=== PATIENT | male | born 1960 | race African-American/Black ===

== ENCOUNTER 2017-12-20 16:24 | Emergency (ER) | payer OTHER, SELFPAY ==
[2017-12-20 16:58] LABS: AMPHETAMINE/METHAMPHETAMINE NEG (NEG); BARBITURATES NEG (NEG); BENZODIAZEPINES NEG (NEG); CANNABINOIDS NEG (NEG); COCAINE POS (NEG); ETHANOL, URINE NEG (NEG); METHADONE NEG (NEG); OPIATES NEG (NEG); PHENCYCLIDINE NEG (NEG)
[2017-12-20 17:02] LABS: ADD MAN DIFF? NO
[2017-12-20 17:07] LABS: BASO % 1 % (0-3); EOS % 0 % (0-3); HEMATOCRIT 36.1 % (39.0-53.0); HEMOGLOBIN 11.9 g/dL (13.0-17.5); LYMPH # 1.2 x10^3/uL (1.0-4.8); LYMPH % 19 % (24-48); MEAN CORPUSCULAR HEMOGLOBIN 28 pg (25-35); MEAN CORPUSCULAR HGB CONC 33 g/dL (31-37); MEAN CORPUSCULAR VOLUME 85 fL (79-100); MONO # 0.6 x10^3/uL (0.0-1.1); MONO % 9 % (0-9); NEUT # 4.6 x10^3uL (1.8-7.7); NEUT % 71 % (31-73); PLATELET COUNT 226 x10^3/uL (140-400); RED BLOOD COUNT 4.26 x10^6/uL (4.30-5.70); WHITE BLOOD COUNT 6.5 x10^3/uL (4.0-11.0)
[2017-12-20] MEDS: IV NORMAL SALINE 1000ML BAG 1,000 ML IV ×2 (17:10)
[2017-12-20 17:36] LABS: ANION GAP 7 (6-14); BLOOD UREA NITROGEN 23 mg/dL (8-26); BUN/CREATININE RATIO 16 (6-20); CALCIUM 9.7 mg/dL (8.5-10.1); CARBON DIOXIDE 30 mmol/L (21-32); CHLORIDE 101 mmol/L (98-107); CREATININE 1.4 mg/dL (0.7-1.3); GFR 52.4; GLUCOSE 448 mg/dL (70-99); POTASSIUM 4.2 mmol/L (3.5-5.1); SODIUM 138 mmol/L (136-145)
[2017-12-20 17:42] LABS: ALBUMIN 3.8 g/dL (3.4-5.0); ALBUMIN/GLOBULIN RATIO 0.9 (1.0-1.7); ALK PHOS 77 U/L (46-116); ALT (SGPT) 23 U/L (16-63); AST (SGOT) 27 U/L (15-37); TOTAL BILIRUBIN 0.5 mg/dL (0.2-1.0)
[2017-12-20 17:50] LABS: ETHANOL < 10 mg/dL (0-10)
[2017-12-20] MEDS: INSULIN REGULAR 100 UNIT/ML 10ML VIAL. IV ×2 (18:45)
== END 2017-12-20 19:49 | disposition home or self-care (01) ==
LOC: ER 16:24
DX: F32.9 Major depressive disorder, single episode, unspecified (principal); F14.90 Cocaine use, unspecified, uncomplicated; R45.851 Suicidal ideations; I48.91 Unspecified atrial fibrillation; J45.909 Unspecified asthma, uncomplicated; E11.9 Type 2 diabetes mellitus without complications; E78.00 Pure hypercholesterolemia, unspecified; I10 Essential (primary) hypertension; Z79.84 Long term (current) use of oral hypoglycemic drugs; Z59.0 Homelessness; Z79.899 Other long term (current) drug therapy
CPT/HCPCS: 36415; 80053; 80307; 85025; 96361; 96374; 99284-25; G0480; J1815; J7030

== ENCOUNTER 2018-01-31 02:13 | Emergency (ER) | payer OTHER | END 2018-01-31 05:37 | disposition home or self-care (01) | LOC: ER 02:13 | DX: M25.562 Pain in left knee (principal); E11.9 Type 2 diabetes mellitus without complications; E78.00 Pure hypercholesterolemia, unspecified; I48.91 Unspecified atrial fibrillation; J45.909 Unspecified asthma, uncomplicated; F14.10 Cocaine abuse, uncomplicated; W18.39XA Other fall on same level, initial encounter; Y93.89 Activity, other specified; Y99.8 Other external cause status; Y92.89 Other specified places as the place of occurrence of the external cause | CPT/HCPCS: 72170; 73562; 73700; 99284 ==

== ENCOUNTER 2018-04-17 17:14 | Inpatient (IN) | payer MEDICAID, OTHER ==
[2018-04-17 17:52] LABS: ADD MAN DIFF? NO
[2018-04-17 17:54] LABS: BASO % 0 % (0-3); EOS % 0 % (0-3); HEMATOCRIT 30.7 % (39.0-53.0); HEMOGLOBIN 10.2 g/dL (13.0-17.5); LYMPH % 9 % (24-48); MEAN CORPUSCULAR HEMOGLOBIN 27 pg (25-35); MEAN CORPUSCULAR HGB CONC 33 g/dL (31-37); MEAN CORPUSCULAR VOLUME 83 fL (79-100); MONO # 0.4 x10^3/uL (0.0-1.1); MONO % 4 % (0-9); NEUT # 9.8 x10^3uL (1.8-7.7); NEUT % 87 % (31-73); PLATELET COUNT 314 x10^3/uL (140-400); RED BLOOD COUNT 3.72 x10^6/uL (4.30-5.70); RED CELL DISTRIBUTION WIDTH 15.3 % (11.5-14.5); WHITE BLOOD COUNT 11.3 x10^3/uL (4.0-11.0)
[2018-04-17 17:56] LABS: BILIRUBIN,URINE NEGATIVE (NEG); CLARITY,URINE TURBID; COLOR,URINE YELLOW; GLUCOSE,URINE NEGATIVE (NEG); NITRITE,URINE NEGATIVE (NEG); PROTEIN,URINE >=300 mg/dL (NEG-TRACE)
[2018-04-17 18:01] LABS: ANION GAP 11 (6-14); BLOOD UREA NITROGEN 33 mg/dL (8-26); BUN/CREATININE RATIO 24 (6-20); CALCIUM 9.7 mg/dL (8.5-10.1); CARBON DIOXIDE 30 mmol/L (21-32); CHLORIDE 102 mmol/L (98-107); CREATININE 1.4 mg/dL (0.7-1.3); GFR 63.2; GLUCOSE 172 mg/dL (70-99); POTASSIUM 3.4 mmol/L (3.5-5.1); SODIUM 143 mmol/L (136-145)
[2018-04-17 18:07] LABS: ALBUMIN 3.4 g/dL (3.4-5.0); ALBUMIN/GLOBULIN RATIO 0.8 (1.0-1.7); ALK PHOS 100 U/L (46-116); ALT (SGPT) 21 U/L (16-63); AST (SGOT) 17 U/L (15-37); TOTAL BILIRUBIN 0.3 mg/dL (0.2-1.0); TOTAL PROTEIN 7.9 g/dL (6.4-8.2)
[2018-04-17 18:11] LABS: BACTERIA,URINE MODERATE /HPF (0-FEW); WBC,URINE TNTC /HPF (0-4)
[2018-04-17] MEDS: IOHEXOL 300 MG/ML 100ML VIAL. IV (18:15)
[2018-04-17] MEDS ORDERED: CONTRAST GIVEN. MC (18:15)
[2018-04-17 18:25] LABS: LIPASE 134 U/L (73-393)
[2018-04-17] MEDS: MORPHINE SULFATE 4 MG/ML DISP.SYRIN. IV ×2 (18:33→21:00)
[2018-04-17] MEDS: ONDANSETRON PF 4 MG/2 ML VIAL. IV ×2 (18:33→21:49)
[2018-04-17] MEDS: IV NORMAL SALINE 1000ML BAG 1,000 ML IV ×2 (18:33→23:41)
[2018-04-17] MEDS ORDERED: fentaNYL PF VIAL 100 MCG/2 ML VIAL IV (22:15)
[2018-04-17] MEDS ORDERED: traMADol 50 MG TABLET PO (23:00)
[2018-04-17] MEDS ORDERED: ACETAMINOPHEN 325 MG TABLET. PO (23:00)
[2018-04-18] MEDS: IV NORMAL SALINE 1000ML BAG 1,000 ML IV ×2 (07:15→16:57)
[2018-04-18 08:12] LABS: POC GLUCOSE 220 mg/dL (70-99)
[2018-04-18] MEDS: hydroCHLOROthiazide 25 MG TABLET PO (09:00)
[2018-04-18] MEDS: LISINOPRIL 20 MG TABLET PO ×2 (09:00→21:00)
[2018-04-18] MEDS: amLODIPine BESYLATE 5 MG TABLET PO ×2 (09:00→21:00)
[2018-04-18] MEDS: VENLAFAXINE XR 37.5 MG CAP.ER.24H. PO (09:00)
[2018-04-18] MEDS: LIDOCAINE (700MG/PATCH) PATCH. TP (09:31)
[2018-04-18] MEDS: INSULIN LISPRO 300 UNITS/3 ML INSULN.PEN. SQ ×6 (09:34→16:58)
[2018-04-18] MEDS: MORPHINE SULFATE 4 MG/ML DISP.SYRIN. IV ×3 (09:52→15:50)
[2018-04-18] MEDS: ONDANSETRON PF 4 MG/2 ML VIAL. IV (10:11)
[2018-04-18 11:29] LABS: POC GLUCOSE 150 mg/dL (70-99)
[2018-04-18 16:47] LABS: POC GLUCOSE 67 mg/dL (70-99)
[2018-04-18] MEDS: DEXTROSE 50% 25 GM / 50ML DISP.SYRIN. IV (16:54)
[2018-04-18 17:48] LABS: POC GLUCOSE 106 mg/dL (70-99)
[2018-04-18 19:17] LABS: MRSA BY PCR Negative (Negative)
[2018-04-18 20:23] LABS: POC GLUCOSE 103 mg/dL (70-99)
[2018-04-18] MEDS: traZODone 50 MG TABLET. PO (21:00)
[2018-04-18] MEDS: ATORVASTATIN CALCIUM 20 MG TABLET PO (21:00)
[2018-04-18] MEDS: INSULIN GLARGINE 300 UNITS/3 ML INSULN.PEN. SQ (21:00)
[2018-04-18] MEDS: risperiDONE 1 MG TABLET. PO (21:00)
[2018-04-19] MEDS: IV NORMAL SALINE 1000ML BAG 1,000 ML IV ×3 (00:30→16:01)
[2018-04-19 07:48] LABS: POC GLUCOSE 123 mg/dL (70-99)
[2018-04-19] MEDS: INSULIN LISPRO 300 UNITS/3 ML INSULN.PEN. SQ ×6 (08:00→17:30)
[2018-04-19] MEDS: LIDOCAINE (700MG/PATCH) PATCH. TP (08:41)
[2018-04-19] MEDS: VENLAFAXINE XR 37.5 MG CAP.ER.24H. PO (08:50)
[2018-04-19] MEDS: hydroCHLOROthiazide 25 MG TABLET PO (08:51)
[2018-04-19] MEDS: LISINOPRIL 20 MG TABLET PO ×2 (08:51→20:07)
[2018-04-19] MEDS: amLODIPine BESYLATE 5 MG TABLET PO ×2 (08:51→20:08)
[2018-04-19 11:27] LABS: POC GLUCOSE 148 mg/dL (70-99)
[2018-04-19 16:53] LABS: POC GLUCOSE 146 mg/dL (70-99)
[2018-04-19] MEDS: POLYETHYLENE GLYCOL 3350 17 GM PACKET. PO (18:36)
[2018-04-19] MEDS: ATORVASTATIN CALCIUM 20 MG TABLET PO (20:04)
[2018-04-19] MEDS: risperiDONE 1 MG TABLET. PO (20:08)
[2018-04-19] MEDS: traZODone 50 MG TABLET. PO (20:09)
[2018-04-19] MEDS: INSULIN GLARGINE 300 UNITS/3 ML INSULN.PEN. SQ (22:32)
[2018-04-19 23:27] LABS: POC GLUCOSE 157 mg/dL (70-99)
[2018-04-20 04:46] LABS: HEMATOCRIT 28.9 % (39.0-53.0); HEMOGLOBIN 10.1 g/dL (13.0-17.5); MEAN CORPUSCULAR HEMOGLOBIN 28 pg (25-35); MEAN CORPUSCULAR HGB CONC 35 g/dL (31-37); MEAN CORPUSCULAR VOLUME 81 fL (79-100); PLATELET COUNT 286 x10^3/uL (140-400); RED BLOOD COUNT 3.57 x10^6/uL (4.30-5.70); WHITE BLOOD COUNT 6.7 x10^3/uL (4.0-11.0)
[2018-04-20 05:15] LABS: ALBUMIN 2.9 g/dL (3.4-5.0); ALBUMIN/GLOBULIN RATIO 0.7 (1.0-1.7); ALK PHOS 94 U/L (46-116); ALT (SGPT) 20 U/L (16-63); AMYLASE 42 U/L (25-115); ANION GAP 6 (6-14); AST (SGOT) 17 U/L (15-37); BLOOD UREA NITROGEN 12 mg/dL (8-26); BUN/CREATININE RATIO 13 (6-20); CALCIUM 9.3 mg/dL (8.5-10.1); CARBON DIOXIDE 30 mmol/L (21-32); CHLORIDE 106 mmol/L (98-107); CREATININE 0.9 mg/dL (0.7-1.3); GFR 105.2; GLUCOSE 95 mg/dL (70-99); LIPASE 113 U/L (73-393); POTASSIUM 3.2 mmol/L (3.5-5.1); SODIUM 142 mmol/L (136-145); TOTAL BILIRUBIN 0.3 mg/dL (0.2-1.0); TOTAL PROTEIN 7.3 g/dL (6.4-8.2)
[2018-04-20 07:23] LABS: SEDIMENTATION RATE 48 (0-15)
[2018-04-20] MEDS: INSULIN LISPRO 300 UNITS/3 ML INSULN.PEN. SQ ×6 (08:00→16:37)
[2018-04-20] MEDS: IV NORMAL SALINE 1000ML BAG 1,000 ML IV (08:45)
[2018-04-20] MEDS: VENLAFAXINE XR 37.5 MG CAP.ER.24H. PO (08:46)
[2018-04-20] MEDS: hydroCHLOROthiazide 25 MG TABLET PO (08:47)
[2018-04-20] MEDS: LISINOPRIL 20 MG TABLET PO ×2 (08:47→21:07)
[2018-04-20] MEDS: amLODIPine BESYLATE 5 MG TABLET PO ×2 (08:47→21:08)
[2018-04-20] MEDS: LIDOCAINE (700MG/PATCH) PATCH. TP (08:48)
[2018-04-20 09:18] LABS: POC GLUCOSE 75 mg/dL (70-99)
[2018-04-20 10:31] LABS: BILIRUBIN,URINE NEGATIVE (NEG); CLARITY,URINE CLOUDY; COLOR,URINE YELLOW; GLUCOSE,URINE NEGATIVE (NEG); NITRITE,URINE NEGATIVE (NEG); PH,URINE 7.5; PROTEIN,URINE 30 mg/dL (NEG-TRACE)
[2018-04-20 10:52] LABS: BACTERIA,URINE MOD /HPF (0-FEW); WBC,URINE TNTC /HPF (0-4)
[2018-04-20 11:14] LABS: POC GLUCOSE 133 mg/dL (70-99)
[2018-04-20] MEDS: POTASSIUM CHLORIDE 20 MEQ TABLET.ER. PO (12:21)
[2018-04-20 16:30] LABS: POC GLUCOSE 74 mg/dL (70-99)
[2018-04-20 20:41] LABS: POC GLUCOSE 166 mg/dL (70-99)
[2018-04-20] MEDS: traZODone 50 MG TABLET. PO (21:07)
[2018-04-20] MEDS: ATORVASTATIN CALCIUM 20 MG TABLET PO (21:07)
[2018-04-20] MEDS: CIPROFLOXACIN HCL 250 MG TABLET. PO (21:08)
[2018-04-20] MEDS: risperiDONE 1 MG TABLET. PO (21:08)
[2018-04-20] MEDS: INSULIN GLARGINE 300 UNITS/3 ML INSULN.PEN. SQ (21:13)
[2018-04-21] MEDS: IV NORMAL SALINE 1000ML BAG 1,000 ML IV (04:03)
[2018-04-21 07:17] LABS: HEMATOCRIT 29.4 % (39.0-53.0); HEMOGLOBIN 10.3 g/dL (13.0-17.5); MEAN CORPUSCULAR HEMOGLOBIN 29 pg (25-35); MEAN CORPUSCULAR HGB CONC 35 g/dL (31-37); MEAN CORPUSCULAR VOLUME 82 fL (79-100); PLATELET COUNT 322 x10^3/uL (140-400); RED BLOOD COUNT 3.61 x10^6/uL (4.30-5.70); RED CELL DISTRIBUTION WIDTH 14.8 % (11.5-14.5); WHITE BLOOD COUNT 6.4 x10^3/uL (4.0-11.0)
[2018-04-21 07:31] LABS: POC GLUCOSE 61 mg/dL (70-99)
[2018-04-21 07:56] LABS: POC GLUCOSE 72 mg/dL (70-99)
[2018-04-21 08:00] LABS: ALBUMIN 2.8 g/dL (3.4-5.0); ALBUMIN/GLOBULIN RATIO 0.7 (1.0-1.7); ALK PHOS 90 U/L (46-116); ALT (SGPT) 17 U/L (16-63); ANION GAP 9 (6-14); AST (SGOT) 15 U/L (15-37); BLOOD UREA NITROGEN 10 mg/dL (8-26); BUN/CREATININE RATIO 10 (6-20); CALCIUM 8.9 mg/dL (8.5-10.1); CARBON DIOXIDE 28 mmol/L (21-32); CHLORIDE 107 mmol/L (98-107); GFR 93.2; GLUCOSE 67 mg/dL (70-99); POTASSIUM 3.5 mmol/L (3.5-5.1); SODIUM 144 mmol/L (136-145); TOTAL BILIRUBIN 0.2 mg/dL (0.2-1.0)
[2018-04-21] MEDS: INSULIN LISPRO 300 UNITS/3 ML INSULN.PEN. SQ ×4 (08:00→11:57)
[2018-04-21] MEDS: hydroCHLOROthiazide 25 MG TABLET PO (08:30)
[2018-04-21] MEDS: CIPROFLOXACIN HCL 250 MG TABLET. PO (08:31)
[2018-04-21] MEDS: amLODIPine BESYLATE 5 MG TABLET PO (08:31)
[2018-04-21] MEDS: LISINOPRIL 20 MG TABLET PO (08:31)
[2018-04-21] MEDS: VENLAFAXINE XR 37.5 MG CAP.ER.24H. PO (08:31)
[2018-04-21] MEDS: LIDOCAINE (700MG/PATCH) PATCH. TP (08:37)
[2018-04-21] MEDS ORDERED: ACETAMINOPHEN 325 MG TABLET. PO ×2 (14:34→14:45)
[2018-04-21 16:27] LABS: POC GLUCOSE 150 mg/dL (70-99)
[2018-04-24] MEDS ORDERED: ERGOCALCIFEROL (VITAMIN D2) 50,000 UNIT CAPSULE. PO (09:00)
== END 2018-04-21 16:00 | disposition home or self-care (01) | DRG 444 ==
LOC: ER 17:14 → 5 SOUTH 19:41
DX: K80.20 Calculus of gallbladder without cholecystitis without obstruction (principal); N18.6 End stage renal disease; N17.0 Acute kidney failure with tubular necrosis; I48.91 Unspecified atrial fibrillation; E10.22 Type 1 diabetes mellitus with diabetic chronic kidney disease; I12.0 Hypertensive chronic kidney disease with stage 5 chronic kidney disease or end stage renal disease; N39.0 Urinary tract infection, site not specified; J45.909 Unspecified asthma, uncomplicated; F32.9 Major depressive disorder, single episode, unspecified; E78.00 Pure hypercholesterolemia, unspecified; K82.8 Other specified diseases of gallbladder; Z79.4 Long term (current) use of insulin
CPT/HCPCS: 36415; 74176; 76705; 78226; 80053; 81001; 82150; 82962; 83690; 85025; 85027; 85651; 87086; 87186; 87641; 96361; 96365; 96374; 96375; 99285; 99285-25; A9537; J0690; J1815; J2270; J2405; J7030; J7042

== ENCOUNTER 2019-10-19 09:39 | Emergency (ER) | payer MEDICAID ==
[2018-05-03 11:44] VITALS: BP 118/84
[~2019-10-19 09:39] MED LIST: ACET325T9 PO; AMLO5TAB10 PO; APIX5TAB PO; ATOR20TA PO; CIPR250T30 PO; ERGO500027 PO; HYDR-2145 PO; INSU100I13 SQ; INSU100I17 SQ; LIDO700A21 TP; LISI-334 PO; ONDA4TAB12 PO; Pantoprazole PO; RISP0.5T24 PO; TRAM50TA PO; TRAZ150T49 PO; VENL225T PO
[2019-10-19 09:57] LABS: CREATININE ISTAT 1.7 mg/dL (0.5-1.4); HEMOGLOBIN ISTAT 11.2 g/dL (14-18); ION CA ISTAT 1.28 mmol/L (1.13-1.32); POTASSIUM ISTAT 3.9 mmol/L (3.5-5.0)
--- NOTE | 2019-10-19 10:08 | PHYS DOC ---
Past Medical History Past Medical History: Asthma, Depression, Diabetes-Type II, Renal Disease Past Surgical History: No Surgical History Alcohol Use: None Drug Use: None Adult General Chief Complaint Chief Complaint: CPR/FULL ARREST HPI HPI Patient is a 59 year old male patient with history of asthma, diabetes mellit us, seizure, psychiatric problem and resident of [facility] who presents via EMS with cardiorespiratory arrest. Patient had a grand mal seizure for 3-4 minutes and then became unresponsive at 0903 and EMS was informed and CPR was started around 09 by [facility] staff. EMS reported that patient had cardiorespiratory arrest and shockable rhythm with 2 times shock patient had intubation with [address] and continued CPR with for dose of epinephrine without change of condition at his arrival at 0 938 to ER. Patient had no spontaneous pulse or respiration activity and CPR was continued. Review of Systems Review of Systems Unable to evaluate because of unresponsiveness Current Medications Current Medications Current Medications Medications (Trade) Dose Ordered Sig/Bernadine Start Time Stop Time Status Last Admin Dose Admin Epinephrine HCl (EPINEPHrine SYRINGE) 1 mg 1X ONCE 10/19/19 11:30 10/19/19 11:32 DC 10/19/19 09:52 1 MG Sodium Bicarbonate (Sodium Bicarb Adult 8.4% Syr) 50 meq 1X ONCE 10/19/19 11:30 10/19/19 11:32 DC 10/19/19 09:52 50 MEQ Sodium Chloride 1,000 ml @ 1,000 mls/hr 1X ONCE 10/19/19 11:30 10/19/19 12:29 DC 10/19/19 09:50 1,000 MLS/HR Allergies Allergies Allergies Coded Allergies Type Severity Reaction Last Updated Verified No Known Drug Allergies 05/01/18 No Physical Exam Physical Exam Constitutional: Unresponsive CPR in progress HENT: Atraumatic. Eyes: Fixed pupils. Neck: Atraumatic Cardiovascular: CPR in progress, no spontaneous cardiac activity without CPR Lungs & Thorax: No spontaneous respiration. Abdomen:Atraumatic. Extremities: Atraumatic, no spontaneous pulses without CPR Neurologic: Unresponsive. Psychologic: Unresponsive. Current Patient Data Lab Values Laboratory Tests Test 10/19/19 09:50 White Blood Count 11.7 x10^3/uL (4.0-11.0) H Red Blood Count 3.81 x10^6/uL (4.30-5.70) L Hemoglobin 10.5 g/dL (13.0-17.5) L POC Hemoglobin 11.2 g/dL (14-18) L Hematocrit 34.1 % (39.0-53.0) L POC Hematocrit 33 % (37-52) L Mean Corpuscular Volume 90 fL (79-100) Mean Corpuscular Hemoglobin 28 pg (25-35) Mean Corpuscular Hemoglobin Concent 31 g/dL (31-37) Red Cell Distribution Width 15.6 % (11.5-14.5) H Platelet Count 136 x10^3/uL (140-400) L Neutrophils (%) (Auto) 35 % (31-73) Lymphocytes (%) (Auto) 60 % (24-48) H Monocytes (%) (Auto) 4 % (0-9) Eosinophils (%) (Auto) 1 % (0-3) Basophils (%) (Auto) 0 % (0-3) Neutrophils # (Auto) 4.1 x10^3/uL (1.8-7.7) Lymphocytes # (Auto) 7.1 x10^3/uL (1.0-4.8) H Monocytes # (Auto) 0.4 x10^3/uL (0.0-1.1) Eosinophils # (Auto) 0.1 x10^3/uL (0.0-0.7) Basophils # (Auto) 0.1 x10^3/uL (0.0-0.2) POC Sodium 140 mmol/L (135-145) Sodium Level 141 mmol/L (136-145) POC Potassium 3.9 mmol/L (3.5-5.0) Potassium Level 4.0 mmol/L (3.5-5.1) POC Chloride 105 mmol/L (98-110) Chloride Level 104 mmol/L (98-107) Carbon Dioxide Level 19 mmol/L (21-32) L POC Total CO2 21 mmol/L (23-32) L Anion Gap 18 (6-14) H POC Blood Urea Nitrogen 26 mg/dL (8-26) Blood Urea Nitrogen 21 mg/dL (8-26) Creatinine 2.0 mg/dL (0.7-1.3) H POC Creatinine 1.7 mg/dL (0.5-1.4) H Estimated GFR (Cockcroft-Gault) 41.7 BUN/Creatinine Ratio 11 (6-20) Glucose Level 462 mg/dL (70-99) H Calcium Level 9.3 mg/dL (8.5-10.1) POC Ionized Calcium (Dona) 1.28 mmol/L (1.13-1.32) Total Bilirubin 0.2 mg/dL (0.2-1.0) Aspartate Amino Transferase (AST) 643 U/L (15-37) H Alanine Aminotransferase (ALT) 788 U/L (16-63) H Alkaline Phosphatase 126 U/L (46-116) H Total Protein 7.0 g/dL (6.4-8.2) Albumin 3.0 g/dL (3.4-5.0) L Albumin/Globulin Ratio 0.8 (1.0-1.7) L Laboratory Tests 10/19/19 09:50 Laboratory Tests 10/19/19 09:50 EKG EKG [] Radiology/Procedures Radiology/Procedures [] Course & Med Decision Making Course & Med Decision Making Pertinent Labs reviewed. (See chart for details) Evaluation of patient in ER showed 59-year-old male patient brought in by EMS because of cardiovascular respiratory arrest after seizure. Patient had a 36 minutes of cardiorespiratory arrest at arrival to ER and CPR was continued with dose of epinephrine and bicarbonate without response. Patient had decrease of air movement in left side of lung and T tube was removed about 1 inch with improvement of air movement in bilateral chest. Point of care basic metabolic panel did not show acute electrolyte problem and blood sugar was more than 400. After almost 50 minutes of CPR it was stopped at [address] Dr[address] Carlyle Ward patient's primary care physician was informed at 1027 and agreed to try to get certificate. Patient family was informed about treatment and outcome of the patient. Dragon Disclaimer Dragon Disclaimer This electronic medical record was generated, in whole or in part, using a voice recognition dictation system. Departure Departure Impression: Primary Impression: Cardiorespiratory arrest Disposition: 20 (at 0955) Condition: Referrals: CARLYLE WARD MD (PCP) Critical Care Time Critical care time was 40 minutes exclusive of procedures. DAVE SORIANO MD Oct 19, 2019 10:08
[2019-10-19 10:53] LABS: CALCIUM 9.3 mg/dL (8.5-10.1); GFR 41.7
[2019-10-19 10:54] LABS: BASO # 0.1 x10^3/uL (0.0-0.2); BASO % 0 % (0-3); EOS # 0.1 x10^3/uL (0.0-0.7); EOS % 1 % (0-3); HEMATOCRIT 34.1 % (39.0-53.0); HEMOGLOBIN 10.5 g/dL (13.0-17.5); LYMPH # 7.1 x10^3/uL (1.0-4.8); LYMPH % 60 % (24-48); MEAN CORPUSCULAR HEMOGLOBIN 28 pg (25-35); MEAN CORPUSCULAR HGB CONC 31 g/dL (31-37); MEAN CORPUSCULAR VOLUME 90 fL (79-100); MONO # 0.4 x10^3/uL (0.0-1.1); MONO % 4 % (0-9); NEUT # 4.1 x10^3/uL (1.8-7.7); NEUT % 35 % (31-73); PLATELET COUNT 136 x10^3/uL (140-400); RED BLOOD COUNT 3.81 x10^6/uL (4.30-5.70); RED CELL DISTRIBUTION WIDTH 15.6 % (11.5-14.5); WHITE BLOOD COUNT 11.7 x10^3/uL (4.0-11.0)
[2019-10-19 10:58] LABS: ALBUMIN/GLOBULIN RATIO 0.8 (1.0-1.7); TOTAL BILIRUBIN 0.2 mg/dL (0.2-1.0)
[2019-10-19] MEDS ORDERED: EPINEPHrine SYRINGE 1 MG/10 ML SYRINGE IV ONE ×4 (11:30)
[2019-10-19] MEDS ORDERED: IV NORMAL SALINE 1000ML BAG 1,000 ML IV ONE (11:30)
[2019-10-19] MEDS ORDERED: SODIUM BICARB ADULT 8.4% 50 MEQ/50 ML DISP.SYRIN. IV ONE (11:30)
== END 2019-10-19 15:45 | disposition expired ==
LOC: ER 09:39
DX: I46.9 Cardiac arrest, cause unspecified (principal); G40.409 Other generalized epilepsy and epileptic syndromes, not intractable, without status epilepticus; J45.909 Unspecified asthma, uncomplicated; E11.9 Type 2 diabetes mellitus without complications
CPT/HCPCS: 31500; 36415; 80047; 80053; 85025; 92950; 99291; J0171; J7030